=== PATIENT | male | born 1960 | race Caucasian/White ===

== ENCOUNTER 2023-02-23 01:20 | Day surgery (SDC) | payer BC, SELFPAY ==
[2023-02-10 13:36] VITALS: BMI 27.3
--- NOTE | 2023-02-22 20:52 | PM.HPGS ---
History of Present Illness History of Present Illness Consent: Risks, benefits, and alternatives have been discussed and questions answered. Patient agrees to proceed with procedure. Chief complaint: other fecal abnormalities Narrative: Dariusz Rankin is a 63 year old male referred for screening colonoscopy due to a postive Cologuard test Review of Systems Review of Systems: All systems reviewed & are unremarkable except as noted in HPI and below PMFSH Past Medical History Medical History Colon cancer screening (~2018) Cologuard negative HLD (hyperlipidemia) Hypertension Pre-diabetes Family History Family History Father Diabetes mellitus Social History Social History Smoking packs per day: 0.25 Smoking cigarettes per day: 5.0 Years smoked: 4 Smoking pack-years: 1.00 Smoking status: Former smoker Tobacco type: cigarettes Second hand tobacco smoke exposure: Yes Smoking end date: 04/11/80 Alcohol intake: current Drinks per week: 1 Alcohol use details: beer Substance use: never Substance use type: does not use Lack of Transportation: No Lack of Food: Never True Current Housing: I Have Housing Concerned About Future Housing: No Difficulty Paying Gas/Electric Bills: No Difficulty Paying for Meds: No Currently Unemployed: No Education: High School Diploma/GED Difficulty w/ Childcare or Family Care: No Living arrangements: with family Occupation/Education: retired Gender identity (if verbalized by the patient): Male Spiritual care concerns: No Meds Home Medications and Allergies Home Medications Medication Instructions Recorded Confirmed Type atorvastatin 20 mg tablet 20 mg PO DAILY #90 tabs 11/10/22 02/23/23 Rx metformin 500 mg tablet 500 mg PO BID #180 tabs 11/14/22 02/23/23 Rx triamcinolone acetonide 0.1 % 1 applic topical BID #30 grams 12/28/22 02/23/23 Rx topical cream lisinopril 10 1 tablet PO DAILY 02/10/23 02/23/23 History mg-hydrochlorothiazide 12.5 mg tablet Allergies Allergy/AdvReac Type Severity Reaction Status Date / Time No Known Allergies Allergy Verified 02/23/23 12:05 Exam Const: General: alert Orientation/consciousness: patient oriented x3 Resp: Auscultation: clear to auscultation bilaterally Cardio: Rhythm: regular rhythm GI: GI Palp: Yes Soft to palpation and No Tenderness to palpation present (GI) Neuro: General: patient oriented x3 Assessment and Plan Assessment and plan (1) Positive colorectal cancer screening using Cologuard test: Code(s): R19.5 - Other fecal abnormalities Status: Acute Assessment and Plan: Colonoscopy with possible biopsy or polypectomy or cautery or injection of substances.
[2023-02-23 12:02] LABS: Glucose Point of Care 113 mg/dl (65-105)
[2023-02-23 12:07] VITALS: BP 142/91; PULSE 66; RESP 18; TEMP 36.6; O2SAT 98
[2023-02-23] MEDS: LACTATED RINGERS 1,000 ML 150 ML IV CONT (12:14)
--- NOTE | 2023-02-23 13:01 | WPDANESEPPF ---
Anes - Initial Pre Proc Eval Procedure: Operation Date: 02/23/23 13:30 Proposed Procedures p Colonoscopy - Dago Ring MD Date/Time: 02/23/23 13:01 Surgeon: Dago Ring MD Pre Op Diagnosis: other fecal abnormalities Patient Data Age: 63 Gender: M Height: 1.78 m Weight: 99.2 kg Last Vital Signs Temp 97.9 F 02/23/23 12:07 Pulse 66 02/23/23 12:07 Resp 18 02/23/23 12:07 BP 142/91 H 02/23/23 12:07 Pulse Ox 98 02/23/23 12:07 O2 Del Method Room Air 02/23/23 12:07 Allergies Allergy/AdvReac Type Severity Reaction Status Date / Time No Known Allergies Allergy Verified 02/23/23 12:05 Home Medications Medication Instructions Recorded Confirmed Type atorvastatin 20 mg tablet 20 mg PO DAILY #90 tabs 11/10/22 02/23/23 Rx metformin 500 mg tablet 500 mg PO BID #180 tabs 11/14/22 02/23/23 Rx triamcinolone acetonide 0.1 % 1 applic topical BID #30 grams 12/28/22 02/23/23 Rx topical cream lisinopril 10 1 tablet PO DAILY 02/10/23 02/23/23 History mg-hydrochlorothiazide 12.5 mg tablet Laboratory Tests 02/23/23 12:00 POC Capillary Glucose 113 H mg/dl (65-105) Patient hx anesthesia problems: none Family hx anesthesia problems: none Results Review: All pre-operative results and documents have been reviewed as part of the pre-operative evaluation. [facility] [place] Past Medical History Medical History (Updated 01/20/23 @ 11:14 by Sharron Ortiz MD) Colon cancer screening (~2017) Cologuard negative HLD (hyperlipidemia) Hypertension Pre-diabetes Family History Family History Father Diabetes mellitus Social History Social History (Updated 11/13/22 @ 14:52 by Leeanne Aguilar CMA) Smoking packs per day: 0.25 Smoking cigarettes per day: 5.0 Years smoked: 4 Smoking pack-years: 1.00 Smoking status: Former smoker Tobacco type: cigarettes Second hand tobacco smoke exposure: Yes Smoking end date: 04/11/80 Alcohol intake: current Drinks per week: 1 Alcohol use details: beer Substance use: never Substance use type: does not use Lack of Transportation: No Lack of Food: Never True Current Housing: I Have Housing Concerned About Future Housing: No Difficulty Paying Gas/Electric Bills: No Difficulty Paying for Meds: No Currently Unemployed: No Education: High School Diploma/GED Difficulty w/ Childcare or Family Care: No Living arrangements: with family Occupation/Education: retired Gender identity (if verbalized by the patient): Male Spiritual care concerns: No Anes - Eval Final PreProcedure Day of Procedure 02/23/23 13:01 Patient weight: obese Heart: regular rate and rhythm Lungs: clear to auscultation Neurological: alert and oriented Last oral intake: >/= 8 hours ASA classification: III Emergent: no Anesthetic plan: proceed Anesthesia type and monitoring: general GIVS and standard monitoring Results Review: All pre-operative results and documents have been reviewed as part of the pre-operative evaluation. Informed Consent: The patient's anesthetic plan and its attendant risks and benefits were discussed with the patient/family/POA. Questions were solicited and answers provided to the satisfaction of the patient/family/POA.
[2023-02-23] MEDS: SIMETHICONE ORAL SUSPENSION 20 MG/0.3 ML 30 ML BOTTLE 0.6 ML IRRIGATION (13:25)
[2023-02-23 13:34] VITALS: BP 117/75; PULSE 72; RESP 18; O2SAT 92
[2023-02-23 13:44] VITALS: BP 123/74; PULSE 74; RESP 18; O2SAT 92
[2023-02-23 13:54] VITALS: BP 141/91; PULSE 62; RESP 19; O2SAT 97
== END 2023-02-23 13:57 | disposition home or self-care (01) ==
PROVIDERS: PCP Family Medicine; Visit Provider Internal Medicine Gastroenterology
PROC: 0DJD8ZZ Inspection of Lower Intestinal Tract, Via Natural or Artificial Opening Endoscopic (ICD-10-PCS; CPT 45378; principal; 2023-02-23 13:30)
DX: Z12.11 Encounter for screening for malignant neoplasm of colon (principal); K63.5 Polyp of colon; K57.30 Diverticulosis of large intestine without perforation or abscess without bleeding; R19.5 Other fecal abnormalities; I10 Essential (primary) hypertension; E78.5 Hyperlipidemia, unspecified; R73.03 Prediabetes; Z79.84 Long term (current) use of oral hypoglycemic drugs; Z87.891 Personal history of nicotine dependence; E66.9 Obesity, unspecified; Z68.31 Body mass index [BMI] 31.0-31.9, adult
CPT/HCPCS: 45385; 82948; 88305; J2704; J7120

== ENCOUNTER 2024-02-18 14:13 | Outpatient (CLI) | payer OTHER, SELFPAY ==
--- NOTE | ~2024-02-18 | XR_ITS ---
EXAMINATION: XR shoulder RT min 2V DATE: 02/18/2024 14:50 INDICATION: Right shoulder pain TECHNIQUE: AP internally and externally rotated, AP oblique externally rotated and transscapular Y vi ews of the right shoulder were obtained. COMPARISON: None FINDINGS: Normal alignment. No fracture.Mild glenohumeral and acromioclavicular osteoarthritis. Cystlike pacheco es underlying the lesser tuberosity which can be seen with subscapularis tendon disease. Soft tissues are unremarkable. Visualized portion of the right lung are clear. IMPRESSION: 1. Mild right glenohumeral and acromioclavicular osteoarthritis. 2. Cystic change underlying the lesser tuberosity which can be seen with subscapularis tendon disease . Reviewed, dictated and finalized at location A. IMPRESSION: 1. Mild right glenohumeral and acromioclavicular osteoarthritis. 2. Cystic change underlying the lesser tuberosity which can be seen with subsca pularis tendon disease.
== END 2024-02-18 14:14 | disposition home or self-care (01) ==
LOC: ANHIMG 14:37
PROVIDERS: PCP Family Medicine; Visit Provider Orthopaedic Surgery
DX: M19.011 Primary osteoarthritis, right shoulder (principal)
CPT/HCPCS: 73030

== ENCOUNTER 2024-02-21 08:22 | Outpatient (CLI) | payer OTHER, BC, SELFPAY ==
--- NOTE | ~2024-02-21 | MR_ITS ---
EXAMINATION: MR shoulder RT wo con DATE: 02/21/2024 09:42 INDICATION: Right shoulder pain. TECHNIQUE: Magnetic resonance imaging (MRI) of the right shoulder was performed without intravenous c ontrast. Sequences included axial PD-weighted FS FSE, coronal oblique PD-weighted FS FSE and T2-weigh rosana FS FSE, and sagittal oblique T2-weighted FS FSE and T1-weighted FSE. COMPARISON: Right shoulder radiographs 02/18/2024 FINDINGS: Coracoacromial arch: The acromion undersurface is curved in morphology (type II). There is severe acromioclavicular joint osteoarthritis. There is severe subacromial/subdeltoid bursitis. Rotator cuff: There is a full-thickness tear of supraspinatus and infraspinatus tendons measuring 5.0 cm anterior t o posterior by 4.5 cm proximal to distal. Teres minor tendon is normal. There is severe subscapularis tendinopathy with articular-sided partial tear. There is moderate fatty atrophy of the subscapularis muscle belly. Biceps tendon and glenoid labrum: There is a complete tear of the proximal biceps tendon. There is degenerative tearing of the glenoid labrum. Fluid: There is a large glenohumeral joint effusion. Bones/cartilage: There is cartilage surface irregularity of humeral head and glenoid. IMPRESSION: 1. Massive full-thickness rotator cuff tear. 2. Complete tear of proximal biceps tendon. 3. Mild glenohumeral joint chondrosis. 4. Severe acromioclavicular joint osteoarthritis. 5. Large glenohumeral joint effusion and severe subacromial/subdeltoid bursitis. Reviewed, dictated and finalized at location E. IMPRESSION: 1. Massive full-thickness rotator cuff tear. 2. Complete tear of proximal biceps tendon. 3. Mild glenohumeral joint chondrosis. 4. Severe acromioclavicular joint osteoarthritis. 5. Large glenohumeral joint effusion and severe subacromial/subdeltoid bursitis .
== END 2024-02-21 08:23 | disposition home or self-care (01) ==
PROVIDERS: PCP Family Medicine; Visit Provider Family Medicine
DX: M75.121 Complete rotator cuff tear or rupture of right shoulder, not specified as traumatic (principal); S46.211A Strain of muscle, fascia and tendon of other parts of biceps, right arm, initial encounter; M94.211 Chondromalacia, right shoulder; M19.011 Primary osteoarthritis, right shoulder; M25.411 Effusion, right shoulder; M75.51 Bursitis of right shoulder; X58.XXXA Exposure to other specified factors, initial encounter
CPT/HCPCS: 73221

== ENCOUNTER 2024-04-29 09:22 | Emergency (ER) | payer BC, SELFPAY ==
--- NOTE | ~2024-04-29 | CT_ITS ---
Clinical Indication: Chest pain, shortness of breath, recent surgery, elevated lipase CT Scan of the Chest and Abdomen with Contrast: Technique: Contiguous sections were acquired throughout the chest and abdomen after intravenous admin istration of 100 cc of Omnipaque 350. Dose reduction technique was used on this scan by utilizing au tomated exposure control and iterative reconstruction technique. The dose-length product (DLP) was 16 93.00 mGy-cm. Findings: There is no evidence of any significant mediastinal, hilar or axillary lymphadenopathy. There is pulm onary embolus involving the distal right lower lobar pulmonary artery extending into several segmenta l branches. There are pulmonary emboli in segmental branches in the right middle lobe. Questionable s mall segmental or subsegmental pulmonary The right upper lobe and left lower lobe. RV-LV ratio is preserved.. There is no evidence of pleural or pericardial effusion. There are mild bibasilar atelectatic changes. No pulmonary nodule evident. The liver, spleen, pancreas, gallbladder, adrenals and kidneys are within normal limits. No evidence of aortic aneurysm. No lymphadenopathy. Visualized bowel loops are unremarkable. No ascites. Impression: Pulmonary emboli, as detailed above, involving right lower lobar pulmonary artery as well as addition al segmental branches. Mild bibasilar atelectatic changes. No significant abnormality seen in the abdomen. Case discussed with Dr. Sims in the emergency room at the time of this reading. Reviewed, dictated and finalized at [facility]. Impression: Pulmonary emboli, as detailed above, involving right lower lobar pulmonary tiffany ry as well as additional segmental branches. Mild bibasilar atelectatic changes. No significant abnormality seen in the abdomen. Case discussed with Dr. Sims in the emergency room at the time of this readlida hernandez
--- NOTE | ~2024-04-29 | XR_ITS ---
XR chest 2V 04/29/2024 09:57 Indication: Chest pain and shortness of breath Procedure: PA and lateral views of the chest Comparison: No prior studies for comparison. Findings: Bibasilar infiltrates. Small pleural effusions. Heart size normal. No edema or pneumothorax . No acute osseous abnormality. Impression: 1: Bibasilar infiltrates, most likely represent atelectasis/scarring. 2: Small pleural effusions. Reviewed, dictated and finalized at location B. Impression: 1: Bibasilar infiltrates, most likely represent atelectasis/scarring. 2: Small pleural effusions.
--- NOTE | 2024-04-29 09:29 | ECG_ITS ---
Test Date: 2024-04-29 09:35:16 Measurements Intervals [place] Rate: 92 P: 18 VT: 166 QRS: -10 QRSD: 90 T: 29 QT: 333 QTc: 414 Interpretive Statements SINUS RHYTHM BASELINE ARTIFACT- I, II, III, AVR, AVL, AVF, V4-V6 NORMAL ECG No previous ECG available for comparison Electronically Signed On 04-29-2024 11:01:52 CDT by Yefri Causey D.O.
[2024-04-29 09:30] VITALS: BP 130/76; PULSE 94; RESP 21; TEMP 36.4; O2SAT 96
[2024-04-29 09:36] VITALS: PULSE 91
[2024-04-29 09:41] VITALS: O2SAT 96
[2024-04-29 09:57] VITALS: PULSE 98; RESP 20; O2SAT 95
[2024-04-29 09:57] LABS: Basophils Percent Auto 0.3 % (0.2-1.2); Eosinophils Absolute Auto 0.1 K/mm3 (0-0.3); Eosinophils Percent Auto 1.2 % (0-4.4); Hematocrit 43.4 % (42.0-52.0); Hemoglobin 14.8 g/dL (14.0-18.0); Immature Granulocyte Absolute 0.07 K/mm3 (0.00-0.031); Immature Granulocyte Percent A 0.6 % (0-0.5); Lymphocytes Absolute Auto 1.07 K/mm3 (0.9-3.2); Lymphocytes Percent Auto 9.6 % (18.3-44.2); Mean Corpuscular HGB Conc 34.1 g/dl (32-36); Mean Corpuscular Hemoglobin 29.9 pg (26-34); Mean Corpuscular Volume 87.7 fl (80-100); Mean Platelet Volume 10.4 fl (7.4-10.4); Monocytes Absolute Auto 1.1 K/mm3 (0.1-0.6); Monocytes Percent Auto 9.6 % (2.6-8.5); Neutrophils Absolute Auto 8.8 K/mm3 (1.3-6.7); Neutrophils Percent Auto 78.7 % (45.5-73.1); Platelet Count Result 234 k/mm3 (150-375); Red Blood Count 4.95 M/mm3 (4.6-6.20); Red Cell Distribution Width 12.5 % (11.5-14.5); White Blood Count 11.2 K/mm3 (4.5-10.0)
[2024-04-29] MEDS: ASPIRIN 81 MG CHEWABLE TABLET 324 MG PO (09:57)
[2024-04-29 10:08] LABS: Alanine Aminotransferase 21 U/L (6-50); Albumin Level 4.5 g/dL (3.5-5.1); Alkaline Phosphatase 60 U/L (38-126); Anion Gap 14 mmol/L (4-12); Aspartate Amino Transferase 23 U/L (17-59); Bilirubin,Total 1.1 mg/dL (0.2-1.3); Blood Urea Nitrogen 16 mg/dL (9-20); Calcium 9.2 mg/dL (8.4-10.2); Carbon Dioxide 24 mmol/L (22-30); Chloride 96 mmol/L (98-107); Estimated CRCL calculation 94 ml/min; Estimated Glomerular Filt Rate > 60; Glucose 158 mg/dL (65-110); Lipase 771 U/L (23-300); Potassium 3.7 mmol/L (3.4-5.0); Sodium 134 mmol/L (137-145)
[2024-04-29 10:09] LABS: INR 1.1; Prothrombin Time 14.6 Seconds (11.1-14.7)
--- NOTE | 2024-04-29 10:14 | PC.NURSE ---
called laboratory at this time to add on the d dimer to the blue top that was sent down
[2024-04-29 10:19] LABS: Troponin I < 0.012 ng/mL (0.000-0.034)
--- NOTE | 2024-04-29 10:26 | ED.CHESTPAIN ---
HPI - Chest Pain General Chief Complaint: Chest Pain Stated Complaint: right sided chest pain Time Seen by Provider: 04/29/24 10:23 Source: patient and family Mode of arrival: ambulatory Limitations: no limitations History of Present Illness HPI narrative: 64-year-old male who presents with chest pain and shortness of breath that started a few days ago. He noted that it was worse while working with physical therapy today and it was recommended that he present to the emergency department given there was concern for a blood clot. Patient underwent rotator cuff repair on 03/25/2024 with Nancy Tyson through [facility] [place]. He states his symptoms are worse at night and also with coughing. He describes pain on the right side of his chest, worse with deep breath in and described as sharp, otherwise nonradiating, 8/10 in severity, and occurring intermittently. He has been taking Tylenol extra-strength 2 and sometimes 3 tablets every few hours which dulls the pain but then it returns. No history of DVT or PE. Not currently on anticoagulation. He has had occasional cough that has primarily been dry although he did have some scant phlegm this morning. No hemoptysis. No fevers. This has never happened before. He has no unilateral or bilateral lower extremity edema. No hormone use. No history of malignancy. He has no cardiac or respiratory history and does not follow with a project financial analyst. States he has never undergone stress test or heart catheterization. He does has a history of hypertension which is controlled with medication. Also hyperlipidemia and is on medication for this. Nonsmoker. No history of TIA. He does have a history of diabetes mellitus and is on Ozempic for this. Related Data Allergies Allergy/AdvReac Type Severity Reaction Status Date / Time No Known Allergies Allergy Verified 04/29/24 09:43 [facility] Past Medical History Medical History Colon cancer screening (~2018) Cologuard negative Diabetes mellitus HLD (hyperlipidemia) Hypertension Surgical History Surgical History S/P right rotator cuff repair 03/25/24; Nancy Tyson ([facility]) Family History Family History (Reviewed 02/12/24 @ 11:50 by Raina Sifuentes [facility]) Father Diabetes mellitus Social History Social History Smoking packs per day: 0.25 Smoking cigarettes per day: 5.0 Years smoked: 4 Smoking pack-years: 1.00 Smoking status: Former smoker Tobacco type: cigarettes Second hand tobacco smoke exposure: Yes Smoking end date: 04/11/80 Alcohol intake: current Drinks per week: 1 Alcohol use details: beer Substance use: never Substance use type: does not use Lack of Transportation: No Lack of Food: Never True Current Housing: I Have Housing Concerned About Future Housing: No Difficulty Paying Gas/Electric Bills: No Difficulty Paying for Meds: No Currently Unemployed: No Education: High School Diploma/GED Difficulty w/ Childcare or Family Care: No Living arrangements: with family Occupation/Education: retired Gender identity (if verbalized by the patient): Male Spiritual care concerns: No Agree to blood products: Yes Exam Narrative: GENERAL: Well-appearing, well-nourished, and in no acute distress. HEAD: Normocephalic, atraumatic. EYES: Non injected, non icteric ENT: Nares clear, no rhinorrhea or epistaxis. NECK: Supple. CHEST: Speaking in full sentences. No respiratory distress. Lungs clear to auscultation bilaterally without wheezes/crackles. TTP of right chest, particularly between sternum and ribs. HEART: Regular rate and rhythm. ABDOMEN: Soft, nondistended. EXTREMITIES: Normal range of motion (though right arm limited given in sling/brace after surgery). No edema in unilateral/bilateral low
[2024-04-29] MEDS: HYDROcodone/acetaminophen (*CRX) 5-325 MG TABLET 1 TAB PO (10:42)
[2024-04-29] MEDS: ACETAMINOPHEN 325 MG TABLET 650 MG PO (10:42)
[2024-04-29 10:43] VITALS: BP 130/75; PULSE 90; RESP 17; O2SAT 96
[2024-04-29 10:48] LABS: D Dimer 1.92 ug/mL (<0.48)
[2024-04-29 11:24] LABS: Influenza A QL RT-PCR Negative (Negative); Influenza B QL RT-PCR Negative (Negative); RSV RNA, RT-PCR Negative (Negative); SARS-CoV-2 RNA PCR Negative (Negative)
[2024-04-29] MEDS: APIXABAN 5 MG TABLET 10 MG PO (11:49)
[2024-04-29 12:17] VITALS: BP 118/76; PULSE 88; RESP 18; O2SAT 95
== END 2024-04-29 12:18 | disposition home or self-care (01) ==
PROVIDERS: Emergency Provider Student in an Organized Health Care Education/Training Program; PCP Family Medicine
DX: I26.99 Other pulmonary embolism without acute cor pulmonale (principal); D72.829 Elevated white blood cell count, unspecified; G47.9 Sleep disorder, unspecified; I10 Essential (primary) hypertension; E11.9 Type 2 diabetes mellitus without complications; E78.5 Hyperlipidemia, unspecified; Z87.891 Personal history of nicotine dependence; Z79.85 Long-term (current) use of injectable non-insulin antidiabetic drugs; Z79.84 Long term (current) use of oral hypoglycemic drugs; Z79.899 Other long term (current) drug therapy
CPT/HCPCS: 36415; 71046; 71275; 74160; 80053; 83690; 84484; 85025; 85380; 85610; 85730; 87637; 93005; 99284; A9270; Q9967

== ENCOUNTER 2025-06-09 10:42 | Outpatient (CLI) | payer MEDICARE, OTHER, SELFPAY ==
--- NOTE | ~2025-06-09 | US_ITS ---
EXAMINATION: US aorta [facility] scr[facility] DATE: 06/09/2025 14:00 CDT INDICATION: Screening for abdominal aortic aneurysm TECHNIQUE: Grayscale, color Doppler, and pulsed Doppler images of the aorta and common iliac arteries were obtained. COMPARISON: CTA dated 04/29/2024 FINDINGS: The proximal aorta measures 2.8 cm greatest sagittal dimension. The mid aorta measures 1.76 cm greatest sagittal dimension. The distal aorta measures 1.6 cm greatest sagittal dimension. The right common internal iliac artery measures 11 mm. The left common iliac artery measures 10 mm. IMPRESSION: 1. Normal caliber aorta without aneurysm. Reviewed, dictated and finalized at location O.
== END 2025-06-09 10:43 | disposition home or self-care (01) ==
LOC: MICIMG 10:44
PROVIDERS: PCP Family Medicine; Visit Provider Family Medicine
DX: Z13.6 Encounter for screening for cardiovascular disorders (principal)
CPT/HCPCS: 76706